=== PATIENT | female | born 1985 | race Caucasian/White ===

== ENCOUNTER 2017-10-14 10:36 | Inpatient (IN) | payer OTHER ==
[~2017-10-14] VITALS: Ht 157.5 cm; Wt 89.0 kg
--- NOTE | ~2017-10-14 | EKG ---
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
[2017-10-14 11:29] VITALS: BP 124/68
[2017-10-14 12:02] LABS: BASO % 0.4 % (0.0-1.0); EOS # 0.1 10*3/uL (0.0-0.4); HEMATOCRIT 33.1 % (37.0-47.0); HEMOGLOBIN 10.1 g/dl (12.0-16.0); LYMPH # 1.8 10*3/uL (1.3-4.4); LYMPH % 39.3 % (27.0-41.0); MEAN CELL VOLUME 83.2 fl (81.0-99.0); MEAN CORPUSCULAR HGB 25.4 pg (27.0-31.0); MEAN CORPUSCULAR HGB CONC 30.5 g/dl (33.0-37.0); MEAN PLATELET VOLUME 9.9 fl (9.6-12.3); MONO # 0.6 10*3/uL (0.1-1.0); MONO % 13.4 % (3.0-9.0); NEUT # 2.1 10*3/uL (2.3-7.9); NEUT % 44.7 % (47.0-73.0); PLATELET COUNT AUTOMATED 299 10*3/uL (130-400); RED BLOOD COUNT 3.98 10*6/uL (4.10-5.10); RED CELL DISTRI WIDTH 16.1 % (0-14.5); WHITE BLOOD COUNT 4.6 10*3/uL (4.8-10.8)
[2017-10-14 12:12] LABS: INTERNATIONAL NORM RATIO 0.9 (2.0-3.5)
[2017-10-14 12:18] LABS: BILIRUBIN NEGATIVE (NEGATIVE); BLOOD NEGATIVE (NEGATIVE); CLARITY SL CLOUDY (CLEAR); COLOR YELLOW (YELLOW); GLUCOSE NEGATIVE (NEGATIVE); KETONE NEGATIVE (NEGATIVE); LEUKO ESTERASE 1+ (NEGATIVE); NITRITE NEGATIVE (NEGATIVE); UROBILINOGEN 0.2 E.U./dl (0.2-1.0)
[2017-10-14 12:22] LABS: ALBUMIN 3.3 gm/dl (3.1-4.5); ALKALINE PHOSPHATASE 45 U/L (45-117); BUN 7 mg/dl (7-24); CHLORIDE 109 mmol/L (98-107); CREATININE 0.64 mg/dL (0.55-1.02); ETHYL ALCOHOL < 3.0 mg/dl (<3); POTASSIUM 4.3 mmol/L (3.5-5.1); SGOT/AST 10 IU/L (3-35); SGPT/ALT 16 U/L (12-78); SODIUM 141 mmol/L (136-145); TOTAL PROTEIN 6.4 gm/dL (6.4-8.2)
[2017-10-14 12:30] LABS: BACTERIA 1+; MUCOUS 1+; WBC 16-20 wbc/hpf (0-5)
[2017-10-14 20:00] VITALS: BP 114/62
[2017-10-15] VITALS: BP 102/58
[2017-10-15 06:01] LABS: URINE AMPHETAMINES < 1000 (1000ng/ml); URINE BARBITURATES < 200 (200ng/ml); URINE BENZODIAZEPINES < 200 (200ng/ml); URINE CANNABINOIDS (THC) < 50 (50ng/ml); URINE COCAINE > 300 (300ng/ml); URINE METHADONE < 300 (300ng/ml); URINE OPIATES < 300 (300ng/ml)
[2017-10-15 06:02] LABS: URINE PHENCYCLIDINE < 25 (25ng/ml)
[2017-10-15 08:00] VITALS: BP 110/55
[2017-10-15 12:00] VITALS: BP 100/58
[2017-10-15 16:00] VITALS: BP 113/63
[2017-10-15 20:29] VITALS: BP 122/65
[2017-10-16] VITALS: BP 123/61
[2017-10-16 08:00] VITALS: BP 118/57
[2017-10-16 12:00] VITALS: BP 111/54
[2017-10-16 16:00] VITALS: BP 107/45
[2017-10-16 20:00] VITALS: BP 115/52
[2017-10-17] VITALS: BP 119/56
[2017-10-17 06:24] LABS: BASO % 0.2 % (0.0-1.0); EOS # 0.2 10*3/uL (0.0-0.4); EOS % 3.5 % (1.0-4.0); HEMATOCRIT 32.6 % (37.0-47.0); HEMOGLOBIN 9.6 g/dl (12.0-16.0); LYMPH # 2.3 10*3/uL (1.3-4.4); LYMPH % 54.4 % (27.0-41.0); MEAN CELL VOLUME 84.2 fl (81.0-99.0); MEAN CORPUSCULAR HGB 24.8 pg (27.0-31.0); MEAN CORPUSCULAR HGB CONC 29.4 g/dl (33.0-37.0); MEAN PLATELET VOLUME 10.4 fl (9.6-12.3); MONO # 0.5 10*3/uL (0.1-1.0); MONO % 11.7 % (3.0-9.0); NEUT # 1.3 10*3/uL (2.3-7.9); NEUT % 30.2 % (47.0-73.0); PLATELET COUNT AUTOMATED 243 10*3/uL (130-400); RED BLOOD COUNT 3.87 10*6/uL (4.10-5.10); WHITE BLOOD COUNT 4.3 10*3/uL (4.8-10.8)
[2017-10-17 07:02] LABS: CREATININE 0.66 mg/dL (0.55-1.02)
[2017-10-17 08:00] VITALS: BP 98/42
[2017-10-17] MEDS ORDERED: METHOCARBAMOL750 M1 PO (09:50)
[2017-10-17] MEDS ORDERED: ZOFRAN 4 MG ED2 TAB PO (09:50)
[2017-10-17] MEDS ORDERED: ATARAX,VISTARIL50 MG PO (09:50)
== END 2017-10-17 11:21 | disposition home or self-care (01) | DRG 897 ==
LOC: 4E 10:36
PROVIDERS: Internal Medicine; Student in an Organized Health Care Education/Training Program
DX: F11.23 Opioid dependence with withdrawal (principal); E44.1 Mild protein-calorie malnutrition; E87.8 Other disorders of electrolyte and fluid balance, not elsewhere classified; F14.10 Cocaine abuse, uncomplicated; F15.10 Other stimulant abuse, uncomplicated; D64.9 Anemia, unspecified; R52 Pain, unspecified; F41.1 Generalized anxiety disorder; F32.9 Major depressive disorder, single episode, unspecified; Z98.51 Tubal ligation status; Z98.891 History of uterine scar from previous surgery; Z83.49 Family history of other endocrine, nutritional and metabolic diseases; Z83.3 Family history of diabetes mellitus; Z72.0 Tobacco use; Z71.6 Tobacco abuse counseling; Z81.1 Family history of alcohol abuse and dependence; Z68.35 Body mass index [BMI] 35.0-35.9, adult

== ENCOUNTER 2018-04-21 15:22 | Inpatient (IN) | payer OTHER ==
[~2018-04-21] VITALS: Ht 157.5 cm; Wt 78.2 kg
--- NOTE | ~2018-04-21 | EKG ---
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
[~2018-04-21 15:22] MED LIST: ATARAX,VISTARIL50 MG PO; METHOCARBAMOL750 M1 PO; ZOFRAN 4 MG ED2 TAB PO
[2018-04-21 16:00] VITALS: BP 117/53
--- NOTE | 2018-04-21 16:05 | NUR ---
Pt arrived to floor from [facility] office. Placed in room by [facility] staff. Pt is alert and oriented. Reports using heroin iv 2 grams daily, last used at 1 am today 1.5 grams. States that she was dc from here from [facility] in September. States after that she went to a suboxone clinic and was doing well but then relapsed, states she was just using here and there. States she was kicked out of clinic and then started using daily and went from snorting to IV usage. Admits to sharing needles with her boyfriend who is hep C+. States she has not been tested for hep c. Pt reports chills, feeling rundown, nausea and restless arms.
--- NOTE | 2018-04-21 16:15 | NUR ---
PATIENT MEETS [facility], CINA=16. PATIENT IS INTERESTED IN INPATIENT TREATMENT. [facility] WILL FAX THE PATIENT'S ASSESSMENT TO THE FACILITIES THAT ACCEPT HER INSURANCE TO FIND AN OPEN BED. TOMÁS PADILLA MS [employer]GETABLE SORTER
--- NOTE | 2018-04-21 16:24 | NUR ---
DR. Ray notified that pt is here in room.
[2018-04-21 17:12] LABS: BILIRUBIN NEGATIVE (NEGATIVE); BLOOD 2+ (NEGATIVE); CLARITY SL CLOUDY (CLEAR); COLOR YELLOW (YELLOW); GLUCOSE NEGATIVE (NEGATIVE); KETONE TRACE (NEGATIVE); LEUKO ESTERASE NEGATIVE (NEGATIVE); NITRITE NEGATIVE (NEGATIVE); PH 5.5 (5.0-9.0); SPECIFIC GRAVITY >= 1.030 (1.005-1.030); UROBILINOGEN 0.2 E.U./dl (0.2-1.0)
[2018-04-21 17:20] LABS: URINE AMPHETAMINES < 1000 (1000ng/ml); URINE BARBITURATES < 200 (200ng/ml); URINE BENZODIAZEPINES < 200 (200ng/ml); URINE CANNABINOIDS (THC) < 50 (50ng/ml); URINE COCAINE < 300 (300ng/ml); URINE METHADONE < 300 (300ng/ml); URINE OPIATES > 300 (300ng/ml)
[2018-04-21 17:21] LABS: BASO % 0.4 % (0.0-1.0); EOS # 0.1 10*3/uL (0.0-0.4); EOS % 0.8 % (1.0-4.0); HEMATOCRIT 37.1 % (37.0-47.0); HEMOGLOBIN 11.2 g/dl (12.0-16.0); MEAN CELL VOLUME 79.4 fl (81.0-99.0); MEAN CORPUSCULAR HGB CONC 30.2 g/dl (33.0-37.0); MEAN PLATELET VOLUME 10.6 fl (9.6-12.3); MONO # 0.7 10*3/uL (0.1-1.0); MONO % 9.3 % (3.0-9.0); NEUT # 2.9 10*3/uL (2.3-7.9); NEUT % 37.4 % (47.0-73.0); PLATELET COUNT AUTOMATED 315 10*3/uL (130-400); RED BLOOD COUNT 4.67 10*6/uL (4.10-5.10); RED CELL DISTRI WIDTH 18.4 % (0-14.5); WHITE BLOOD COUNT 7.7 10*3/uL (4.8-10.8)
[2018-04-21 17:23] LABS: URINE PHENCYCLIDINE < 25 (25ng/ml)
--- NOTE | 2018-04-21 17:26 | NUR ---
Medicated with first dose of subutex after urine pregnacy result was received. Given robaxin, bentyl, and zofran per prn order for muscles aches, abdominal cramping and nausea.
--- NOTE | 2018-04-21 17:31 | NUR ---
Noted that vistaril was not on prn meds for this pt. Pt states that last time she took vistaril for sleep, states she did not like how drowsy the trazadone made her feel. Attempted to call resident regarding this.
[2018-04-21 17:38] LABS: ALBUMIN 3.5 gm/dl (3.1-4.5); ALKALINE PHOSPHATASE 103 U/L (45-117); BUN 10 mg/dl (7-24); CHLORIDE 105 mmol/L (98-107); CREATININE 0.52 mg/dL (0.55-1.02); POTASSIUM 4.2 mmol/L (3.5-5.1); SGOT/AST 245 IU/L (3-35); SGPT/ALT 376 U/L (12-78); SODIUM 138 mmol/L (136-145); TOTAL PROTEIN 7.8 gm/dL (6.4-8.2)
--- NOTE | 2018-04-21 17:40 | NUR ---
Spoke with Dr. Ray regarding vistaril not currently ordered for pt. States they are trying ativan now when pt UDS is negative for benzos. Notified that urine was sent but have not seen result yet.
[2018-04-21 17:42] LABS: BETA-HCG, QUANT < 1.0 mIU/mL (1-3); ETHYL ALCOHOL < 3.0 mg/dl (<3)
[2018-04-21 17:55] LABS: BACTERIA 1+; MUCOUS TRACE; WBC 0-2 wbc/hpf (0-5)
--- NOTE | 2018-04-21 18:34 | NUR ---
Explained order to pt for ativan. Notified that if she needs it for anxiety or for sleep to notify nurse.
[2018-04-21 20:00] VITALS: BP 97/49
[2018-04-22] VITALS: BP 100/41
[2018-04-22 08:00] VITALS: BP 100/54
--- NOTE | 2018-04-22 08:40 | NUR ---
ATIVAN GIVEN FOR COMPLAINTS OF ANXIETY. ROBAXIN GIVEN FOR COMPLAINTS OF MUSCLE CRAMPS. WILL CONTINUE TO MONITOR AND REASSESS.
--- NOTE | 2018-04-22 09:30 | NUR ---
ATIVAN EFFECTIVE FOR COMPLAINTS OF ANXIETY. ROBAXIN EFFECTIVE FOR MUSCLE CRAMPS. PT RESTING COMFORTABLY.
[2018-04-22 12:00] VITALS: BP 99/45
--- NOTE | 2018-04-22 15:49 | NUR ---
BENTYL GIVEN FOR COMPLAINTS OF STOMACH CRAMPS AND ZOFRAN GIVEN FOR COMPLAINTS OF NAUSEA. ROBAXIN GIVEN FOR COMPLAINTS OF MUSCLE CRAMPS/ACHES. WILL CONTINUE TO MONITOR AND REASSESS.
--- NOTE | 2018-04-22 16:30 | NUR ---
BENTYL EFFECTIVE FOR STOMACH CRAMPS AND ZOFRAN EFFECTIVE FOR NAUSEA. ROBAXIN EFFECTIVE FOR MUSCLE CRAMPS/ACHES. PATIENT RESTING COMFORTABLY.
--- NOTE | 2018-04-22 17:05 | NUR ---
ATIVAN GIVEN FOR COMPLAINTS OF ANXIETY. WILL CONTINUE TO MONITOR AND REASSESS.
--- NOTE | 2018-04-22 17:50 | NUR ---
ATIVAN EFFECTIVE FOR ANXIETY. PT RESTING COMFORTABLY.
[2018-04-22 20:00] VITALS: BP 94/62
[2018-04-23] VITALS: BP 100/40
[2018-04-23 08:00] VITALS: BP 102/48
--- NOTE | 2018-04-23 09:45 | NUR ---
PT REQUESTED AND GIVEN ATIVAN FOR ANXIETY AND ROBAXIN FOR MUSCLE ACHES WILL MONITOR
--- NOTE | 2018-04-23 10:40 | NUR ---
PT RESTING IN BED , EYES CLOSED/ ROBAXIN AND ATIVAN APPEAR EFFECTIVE. WILL MONITOR
[2018-04-23 12:00] VITALS: BP 115/56
--- NOTE | 2018-04-23 15:38 | NUR ---
PT MEDICATED WITH ROBAXIN FIR C/O BODY ACHES AND ATIVAN FOR ANXIETY WILL MONITOR.
[2018-04-23 16:00] VITALS: BP 112/54
--- NOTE | 2018-04-23 19:37 | NUR ---
PATIENT MEDICATED WITH PO REQUIP FOR C/O RESTLESS LEGS, PO TYLENOL FOR C/O HEADACHE, AND SL ZOFRAN FOR C/O NAUSEA. WILL MONITOR EFFECTIVENESS OF MEDICATIONS. CALL LIGHT LEFT IN REACH.
[2018-04-23 20:00] VITALS: BP 119/58
--- NOTE | 2018-04-23 21:10 | NUR ---
PATIENT STATES EARLIER MEDICATIONS HELPED SOME. REQUESTING PO ATIVAN FOR C/O ANXIETY, PO ROBAXIN FOR C/O MUSCLE ACHES, PO MOTRIN FOR HEADACHE/GENERALIZED BODY ACHES, & NICOTROL INHALER CARTRIDGE FOR C/O NICOTINE CRAVING. SL SUBUTEX ALSO ADMINISTERED PER ORDER AT THIS TIME. WILL MONITOR EFFECTIVENESS. CALL LIGHT LEFT IN REACH.
[2018-04-24] VITALS: BP 120/65
--- NOTE | 2018-04-24 01:45 | NUR ---
PATIENT AWAKE IN BED. DENIES ANY NEW/WORSENING SYMTOMS. STATES SHE HAS HAD TROUBLE SLEEPING EVER SINCE SHE WAS WOKEN FOR 0000 VITALS. OFFERED PRN MEDICATIONS AVAILABLE. PATIENT DENIES NEED. WILL MONITOR. CALL LIGHT LEFT IN REACH.
--- NOTE | 2018-04-24 03:19 | NUR ---
PO ATIVAN AND PO ROBAXIN ADMINISTERED FOR C/O ANXIETY AND MUSCLE ACHES. WILL MONITOR EFFECTIVENESS. CALL LIGHT LEFT IN REACH.
--- NOTE | 2018-04-24 04:16 | NUR ---
EARLIER MEDICATIONS APPEAR EFFECTIVE. PATIENT RESTING IN BED WITH EYES CLOSED. NO S/S OF DISTRESS NOTED. WILL MONITOR. CALL LIGHT LEFT IN REACH.
[2018-04-24 06:15] LABS: HEMATOCRIT 32.9 % (37.0-47.0); MEAN CORPUSCULAR HGB 24.3 pg (27.0-31.0); MEAN CORPUSCULAR HGB CONC 30.4 g/dl (33.0-37.0); MEAN PLATELET VOLUME 10.7 fl (9.6-12.3); PLATELET COUNT AUTOMATED 278 10*3/uL (130-400); RED BLOOD COUNT 4.11 10*6/uL (4.10-5.10); WHITE BLOOD COUNT 6.5 10*3/uL (4.8-10.8)
[2018-04-24 06:31] LABS: CREATININE 0.54 mg/dL (0.55-1.02)
[2018-04-24 07:12] LABS: TOTAL CELLS COUNTED 100 #CELLS
[2018-04-24 07:13] LABS: PLATELET SUFFICIENCY NORMAL (NORMAL)
[2018-04-24 07:14] LABS: MICROCYTOSIS SLIGHT
[2018-04-24 08:00] VITALS: BP 100/50
--- NOTE | 2018-04-24 09:17 | NUR ---
MEDICATED WITH PRN PO ATIVAN FOR ANXIETY, BENTYL FOR ABDOMINAL CRAMPS, ROBAXIN AND MOTRIN FOR MUSCLE CRAMPS AND BODY ACHES, AND REQUIP FOR RESTLESS LEGS. ALSO ADMINISTERED FINAL DOSE OF SUBUTEX ORDERED/SCHEDULED. PATIENT IS ANXIOUS AND TEARFUL, TALKING TO [facility] STAFF ABOUT ARRANGING PLACE TO STAY UPON DISCHARGE.
--- NOTE | 2018-04-24 10:00 | NUR ---
Patient resting. Responding to scheduled AND PRN medications with fewer complaints of pain and anxiety.
--- NOTE | 2018-04-24 10:42 | NUR ---
MS STAFF FOLLOWED UP WITH PATIENT. PATIENT STATED THAT [facility] PATIENT WAS GIVEN OTHER REFERRAL OPTIONS AND PATIENT REFUSED. MS STAFF ASKED IF SHE NEEDED TRANSPORTATION SET UP AND SHE STATED THAT SHE REACH OUT TO MS STAFF IF SHE DOES. RAVIN RADER B.A. [employer] CONSULT[employer]
[2018-04-24 12:00] VITALS: BP 121/50
--- NOTE | 2018-04-24 12:20 | NUR ---
PATIENT STATED WANTS TO LEAVE AMA, SIGNED AMA PAPER, AND LEFT TO FRONT LOBBY, PER OTHER STAFF.
== END 2018-04-24 12:20 | disposition left against medical advice (07) | DRG 894 ==
LOC: 5E 15:22
PROVIDERS: Internal Medicine; ADMIT Emergency Medicine
DX: F11.23 Opioid dependence with withdrawal (principal); R31.1 Benign essential microscopic hematuria; F32.9 Major depressive disorder, single episode, unspecified; F41.1 Generalized anxiety disorder; E66.9 Obesity, unspecified; F17.200 Nicotine dependence, unspecified, uncomplicated; R82.71 Bacteriuria; R74.0 Nonspecific elevation of levels of transaminase and lactic acid dehydrogenase [LDH]; D64.9 Anemia, unspecified; Z53.21 Procedure and treatment not carried out due to patient leaving prior to being seen by health care provider; R45.1 Restlessness and agitation; Z98.891 History of uterine scar from previous surgery; Z71.6 Tobacco abuse counseling; Z98.51 Tubal ligation status; Z83.3 Family history of diabetes mellitus